=== PATIENT | male | born 1955 | race Caucasian/White ===

== ENCOUNTER 2016-11-26 17:42 | Emergency (ER) | payer BC, MEDICAID ==
--- NOTE | 2016-11-26 19:18 | EDM.PDOC ---
ED HPI DIABETIC EMERGENCY - General Chief Complaint: Diabetic Complaint Stated Complaint: [facility] Time Seen by Provider: 11/26/16 18:55 Source: Reports: Patient, EMS, RN notes reviewed History Limitations: Reports: No limitations - History of Present Illness INITIAL COMMENTS - FREE TEXT/NARRATIVE: EMS arrival Chief complaint Weakness, low blood sugar spell HPI 61-year-old male who is , lives on his own, has been under treatment with insulin and metformin for 2 years without any problems, gives each of his insulins twice daily for 6 doses. Never had a hypoglycemic episode previously. His hemoglobin A1c was last under 7%, he went to the clinic to have it drawn this morning. When he got home and noon he spoke to his daughter in [place] on line. After lunch lay down to rest and having to sleep with a very strange manner for about 4 hours. When he woke up he felt as though the leg was very weak and confused, couldn't get up from the side of the bed. He felt incredibly weak. He uses cell phone to call a friend who wasn't home and then called his daughter in the [facility] who called the eminence for him. EMS found his sugar in the 50s gave him oral orange juice, Ls, and intravenous D10W initially responded to up to 140s and he was able then to walk and become coherent again. 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 He now substitutes high school social studies part-time, last of it to 2 weeks ago. Feels fine currently - Related Data Allergies/ADRs: Allergies Allergy/AdvReac Type Severity Reaction Status Date / Time No Known Allergies Allergy Verified 11/26/16 17:49 Home Meds: Home Meds Aspirin [Howell Aspirin] 81 mg PO DAILY 11/26/16 [History] Atenolol [Atenolol] 25 mg PO DAILY 11/26/16 [History] Fluticasone Propionate [Flonase] 50 mcg INH DAILY 11/26/16 [History] Insulin Isophane NPH, Human [NovoLIN N] 35 units SUBCUT BID 11/26/16 [History] Insulin Regular, Human [NovoLIN R] 25 units SUBCUT BIDPC 11/26/16 [History] Lisinopril [Lisinopril] 20 mg PO DAILY 11/26/16 [History] Nitroglycerin [Nitrostat] 0.4 mg SL ASDIRECTED PRN 11/26/16 [History] Omeprazole [Omeprazole] 40 mg PO DAILY 11/26/16 [History] Rosuvastatin [Crestor] 20 mg PO DAILY 11/26/16 [History] Tadalafil [Cialis] 20 mg PO ASDIRECTED PRN 11/26/16 [History] Venlafaxine [Effexor XR] 150 mg PO DAILY 11/26/16 [History] metFORMIN HCl [Metformin HCl] 1,000 mg PO BID 11/26/16 [History] Past Medical History HEENT History: Reports: Impaired vision Cardiovascular History: Reports: Hypertension, ID Endocrine/Metabolic History: Reports: Diabetes, type II - Infectious Disease History Infectious Disease History: Reports: Chicken pox, Measles, Mumps - Past Surgical History Musculoskeletal Surgical History: Reports: Carpal tunnel Social & Family History - Tobacco Use Smoking Status *Q: Never Smoker - Caffeine Use Caffeine Use: Reports: Coffee - Recreational Drug Use Recreational Drug Use: No ED ROS GENERAL - Review of Systems Review Of Systems: See Below (a) Constitutional: Reports: weakness, diaphoresis (With the episode). Denies: fever, chills HEENT: Reports: No symptoms Respiratory: Reports: No Symptoms Cardiovascular: Reports: No symptoms (Her) GI/Abdominal: Reports: No symptoms, Mucous in stool Musculoskeletal: Reports: no symptoms Skin: Reports: no symptoms Neurological: Reports: Confusion Psychiatric: Reports: No symptoms Hematologic/Lymphatic: Reports: no symptoms Immunologic: Reports: no symptoms Free text/narrative/comment: All symptoms have improved since EMS arrived at his home ED EXAM GENERAL NO PERIP PULSE - Physical Exam Exam: See Below Exam Limited By: No limitations General Appearance: alert, no apparent distress, other (Normal vital signs, no difficulty speaking moving talking or walking) Eye Exam: bilateral eye: normal inspection Ears: normal external exam Nose: normal inspection, normal mucosa Throat/Mouth: Normal inspection, Normal oropharynx, Normal voice Head: atraumatic, normocephalic Neck: normal inspection, supple Respiratory/Chest: no respiratory distress, lungs clear, normal breath sounds Cardiovascular: normal peripheral pulses, regular rate, rhythm, no murmur Extremities: normal inspection, non-tender, no pedal edema Neurological: alert, oriented, normal cognition, no motor/sensory deficits Psychiatric: normal affect, normal mood Skin Exam: Warm, Dry, Normal color, No rash Lymphatic: no adenopathy Course - Vital Signs Last Recorded V/S: Last Vital Signs Temp 36 C 11/26/16 17:46 Pulse 80 11/26/16 17:46 Resp 18 11/26/16 17:46 BP 142/72 H 11/26/16 17:46 Pulse Ox 98 11/26/16 17:46 - Re-Assessments/Exams Free Text/Narrative Re-Assessment/Exam: 11/26/16 19:40 61-year-old male with type 2 diabetes, on insulin, his first ever hypoglycemic episode, fortunately he was able to call his daughter who called EMS. Symptoms have resolved POC glucose here after intervention by EMS and after being given food here is over 200 now. Repeat POC glucose after 30 minutes over 200, Discharge home Monitor blood sugars at home Taking insulin, Consider personal alarm 11/26/16 19:59 Departure - Departure Time of Disposition: 19:59 Disposition: Home, Self-Care 01 Condition: good Clinical Impression: Hypoglycemia associated with diabetes Instructions: Hypoglycemia Forms: ED Department Discharge Additional Instructions: Take your evening insulin today Monitor your blood sugars at least 4 times a day for the next few days Contact your physician if you're having irregular blood sugar readings Consider getting a personal alarm for use at home Return to emergency if symptoms recur
[2016-11-26 20:08] VITALS: BP 137/81
== END 2016-11-26 20:20 | disposition home or self-care (01) ==
LOC: JP.ED 17:42
DX: E11.649 Type 2 diabetes mellitus with hypoglycemia without coma (principal); I25.2 Old myocardial infarction; E11.9 Type 2 diabetes mellitus without complications; Z79.4 Long term (current) use of insulin; Z79.82 Long term (current) use of aspirin; Z79.899 Other long term (current) drug therapy
CPT/HCPCS: 82962; 99284

== ENCOUNTER 2019-01-15 06:29 | Day surgery (SDC) | payer MEDICAID ==
[2019-01-15] MEDS ORDERED: Sodium Chloride 0.9% 1,000 ML IV SCH (07:00)
[2019-01-15] MEDS ORDERED: fentaNYL 100 MCG/2 ML SDV ONE (07:08)
[2019-01-15] MEDS ORDERED: Propofol 200 MG/20 ML SDV ONE (07:08)
[2019-01-15] MEDS ORDERED: Midazolam 1 MG/ML 2 ML SDV ONE (07:08)
[2019-01-15 09:08] VITALS: BP 128/52
--- NOTE | 2019-01-15 13:51 | OR ---
DATE OF PROCEDURE: 01/15/2019 SURGEON: Shane Garcia MD PROCEDURE: Colonoscopy. FINDINGS: 1. Transverse colon polyp #1, completely removed using snare. 2. Transverse colon polyp #2, completely removed using snare. COMPLICATIONS: None. UNDERGROUND MINING SECTION FOREMAN: None. ANESTHESIA: MAC. PREOPERATIVE DIAGNOSIS: Screening colonoscopy. POSTOPERATIVE DIAGNOSIS: Screening colonoscopy. RISKS: Risks, benefits, alternatives, and limitations including, but not limited to infection, bleeding, and perforation were explained to the patient, who wished to proceed. PROCEDURE IN DETAIL: The patient was placed in left lateral decubitus position. A digital rectal exam was performed without abnormality. The scope was introduced and advanced atraumatically to the ileocecal valve. The scope was brought back through the ascending, transverse, descending colon, and retroflexed. The aforementioned polyps were identified and completely removed. No abnormal bleeding. No other abnormalities. No colitis. No diverticulosis. No proctitis. Normal retroflex. The patient tolerated the procedure well. Shane Garcia MD /[id number]
== END 2019-01-15 09:22 | disposition home or self-care (01) ==
LOC: JP.SDS 06:29
PROVIDERS: ATTEND Surgery
DX: Z12.11 Encounter for screening for malignant neoplasm of colon (principal); K63.5 Polyp of colon; K63.89 Other specified diseases of intestine; K21.9 Gastro-esophageal reflux disease without esophagitis; I25.10 Atherosclerotic heart disease of native coronary artery without angina pectoris; I10 Essential (primary) hypertension; E11.9 Type 2 diabetes mellitus without complications; E78.5 Hyperlipidemia, unspecified; F32.9 Major depressive disorder, single episode, unspecified; G47.33 Obstructive sleep apnea (adult) (pediatric); E66.01 Morbid (severe) obesity due to excess calories; Z68.39 Body mass index [BMI] 39.0-39.9, adult
CPT/HCPCS: 45385; J2250; J2704; J3010; J7030; 88305

== ENCOUNTER 2024-08-16 17:11 | Emergency (ER) | payer MEDICARE, BC ==
[2024-08-16 18:11] VITALS: BP 147/71; PULSE 80
== END 2024-08-16 19:30 | disposition home or self-care (01) ==
LOC: JP.ED 17:11
DX: S91.112A Laceration without foreign body of left great toe without damage to nail, initial encounter (principal); I25.10 Atherosclerotic heart disease of native coronary artery without angina pectoris; I25.2 Old myocardial infarction; I10 Essential (primary) hypertension; E78.00 Pure hypercholesterolemia, unspecified; J44.9 Chronic obstructive pulmonary disease, unspecified; K21.9 Gastro-esophageal reflux disease without esophagitis; E11.9 Type 2 diabetes mellitus without complications; Z95.5 Presence of coronary angioplasty implant and graft; Z79.4 Long term (current) use of insulin; Z79.82 Long term (current) use of aspirin; Z79.84 Long term (current) use of oral hypoglycemic drugs; Z79.899 Other long term (current) drug therapy; W22.8XXA Striking against or struck by other objects, initial encounter
CPT/HCPCS: 12001; 99282; 99283